=== PATIENT | female | born 1975 | race African-American/Black ===

== ENCOUNTER 2023-01-07 05:20 | Emergency (ER) | payer MEDICAID, OTHER ==
[~2023-01-07] VITALS: Ht 165.1 cm; Wt 65.0 kg
[2023-01-07 07:03] VITALS: BP 173/96
== END 2023-01-07 20:23 | disposition left against medical advice (07) ==
LOC: ER 05:20
DX: M79.644 Pain in right finger(s) (principal); Z53.21 Procedure and treatment not carried out due to patient leaving prior to being seen by health care provider
CPT/HCPCS: 73130; 99281; Z7610; 99283

== ENCOUNTER 2024-08-31 01:07 | Emergency (ER) | payer OTHER ==
[~2024-08-31] VITALS: Ht 167.6 cm; Wt 55.0 kg
[2024-08-31 01:09] VITALS: O2SAT 98
[2024-08-31] MEDS: SODIUM CHLORIDE 0.9% 1,000 ML IV ONE ×2 (01:45→02:18)
[2024-08-31] MEDS ORDERED: VANCOMYCIN 1G PREMIX 200 ML IV ONE (01:45)
[2024-08-31 02:07] LABS: BASOPHILS % 0.6 % (0.0-2.0); EOSINOPHILS % 10.6 % (0.0-5.0); HEMATOCRIT. 37.5 % (36.0-48.0); LYMPHOCYTES % 22.7 % (20.0-50.0); MEAN CORPUSCULAR HEMOGLOBIN 27.9 pg (28.0-32.0); MEAN CORPUSCULAR VOLUME 87.3 fL (81.0-99.0); MEAN PLATELET VOLUME 7.9 fl (7.4-10.4); MONOCYTES % 5.8 % (2.0-8.0); NEUTROPHILS % 60.3 % (40.0-76.0); PLATELET 279 x1000/uL (130-400); RED CELL DISTRIBUTION WIDTH 13.3 % (11.6-14.6); WHITE BLOOD COUNT 6.2 x1000/uL (4.5-11.0)
[2024-08-31] MEDS: PIPERACILLIN/TAZO 3.375G/50ML 50 ML IV ONE (02:18)
[2024-08-31] MEDS: PREDNISONE 20MG TABLET PO ONE (02:20)
[2024-08-31] MEDS: DIPHENHYDRAMINE 50MG/ML VIAL IV ONE (02:20)
[2024-08-31 02:32] LABS: CHLORIDE 111 mEq/L (98-107); POTASSIUM 3.8 mEq/L (3.5-5.1); SODIUM 140 mEq/L (136-145)
[2024-08-31 02:33] LABS: CARBON DIOXIDE 24 mEq/L (21-32)
[2024-08-31 02:35] LABS: CLARITY URINE CLOUDY (CLEAR); COLOR URINE YELLOW (YELLOW); GLUCOSE URINE NEGATIVE (NEGATIVE); KETONES URINE NEGATIVE (NEGATIVE); LEUKOCYTE ESTERASE URINE TRACE (NEGATIVE); NITRITE URINE POSITIVE (NEGATIVE); OCCULT BLOOD URINE NEGATIVE (NEGATIVE); PROTEIN URINE NEGATIVE (NEGATIVE); SPECIFIC GRAVITY URINE 1.028 (1.005-1.030)
[2024-08-31 02:38] LABS: CREATININE 0.8 mg/dL (0.6-1.0); GLUCOSE 86 mg/dL (70-105)
[2024-08-31 02:39] LABS: UREA NITROGEN BLOOD 9 mg/dL (9-23)
[2024-08-31 02:40] LABS: ALANINE AMINOTRANSFERASE 24 IU/L (10-49); ASPARTATE AMINOTRANSFERASE 21 IU/L (<34); BILIRUBIN TOTAL 0.5 mg/dL (0.1-1.0)
[2024-08-31] MEDS: VANCOMYCIN 500MG PREMIX 100 ML IV SCH (02:46)
[2024-08-31 04:18] LABS: SQUAMOUS EPITHELIAL CELL URINE RARE /lpf (RARE/1+)
[2024-08-31 04:19] LABS: BACTERIA URINE 2+
[2024-08-31 06:41] VITALS: BP 129/77; PULSE 78; RESP 15; TEMP 37.16964; O2SAT 100
== END 2024-08-31 07:07 | disposition short-term general hospital (02) ==
LOC: ER 01:07
DX: L03.90 Cellulitis, unspecified (principal); N39.0 Urinary tract infection, site not specified; F12.10 Cannabis abuse, uncomplicated
CPT/HCPCS: 80053; 81003; 85025; 87040; 87086; 36415; 71045; 96367; 96361; 96365; 96375; 99285; J7512; J1200; J2543; J3370; J7030; Z7610

== ENCOUNTER 2024-11-01 10:48 | Emergency (ER) | payer OTHER ==
[~2024-11-01] VITALS: Ht 157.5 cm; Wt 50.0 kg
[2024-11-01 10:51] VITALS: O2SAT 96
[2024-11-01 11:38] LABS: BASOPHILS % 0.1 % (0.0-2.0); EOSINOPHILS % 0.1 % (0.0-5.0); HEMATOCRIT. 34.7 % (36.0-48.0); HEMOGLOBIN. 11.1 g/dL (12.0-16.0); LYMPHOCYTES % 9.1 % (20.0-50.0); MEAN CORPUSCULAR HEMOGLOBIN 27.3 pg (28.0-32.0); MEAN CORPUSCULAR HGB CONC 31.9 g/dL (31.0-37.0); MEAN CORPUSCULAR VOLUME 85.7 fL (81.0-99.0); MEAN PLATELET VOLUME 8.8 fl (7.4-10.4); MONOCYTES % 11.3 % (2.0-8.0); NEUTROPHILS % 79.4 % (40.0-76.0); PLATELET 305 x1000/uL (130-400); RED BLOOD CELL COUNT 4.05 mill/uL (4.2-5.4); RED CELL DISTRIBUTION WIDTH 13.2 % (11.6-14.6); WHITE BLOOD COUNT 11.2 x1000/uL (4.5-11.0)
[2024-11-01 11:45] LABS: CHLORIDE 103 mEq/L (98-107); POTASSIUM 3.4 mEq/L (3.5-5.1); SODIUM 137 mEq/L (136-145)
[2024-11-01] MEDS ORDERED: CEFTRIAXONE 1GM/50ML 50 ML IV ONE (11:45)
[2024-11-01 11:46] LABS: CARBON DIOXIDE 26 mEq/L (21-32)
[2024-11-01 11:51] LABS: CREATININE 0.6 mg/dL (0.6-1.0); GLUCOSE 123 mg/dL (70-105)
[2024-11-01 11:52] LABS: UREA NITROGEN BLOOD 6 mg/dL (9-23)
[2024-11-01 11:53] LABS: ALANINE AMINOTRANSFERASE 80 IU/L (10-49); ALBUMIN 3.6 g/dL (3.2-4.8); ASPARTATE AMINOTRANSFERASE 77 IU/L (<34)
[2024-11-01 11:54] LABS: BILIRUBIN TOTAL 0.5 mg/dL (0.1-1.0); PROTEIN TOTAL 6.7 g/dL (6.0-8.3)
[2024-11-01 11:56] LABS: LACTIC ACID 2.4 mmol/L (0.4-2.0); TROPONIN I HIGH SENSITIVITY < 4 ng/L (3.0-34)
[2024-11-01 15:34] LABS: TROPONIN I HIGH SENSITIVITY < 4 ng/L (3.0-34)
[2024-11-01] MEDS: SODIUM CHLORIDE 0.9% (SEPSIS BOLUS) IV ONE (16:54)
[2024-11-01] MEDS: AZITHROMYCIN 500MG/250ML 250 ML IV ONE (16:54)
[2024-11-01] MEDS: CEFTRIAXONE 1GM/50ML 50 ML IV NR (16:54)
[2024-11-01 18:38] LABS: CLARITY URINE CLEAR (CLEAR); COLOR URINE YELLOW (YELLOW); GLUCOSE URINE NEGATIVE (NEGATIVE); KETONES URINE NEGATIVE (NEGATIVE); LEUKOCYTE ESTERASE URINE TRACE (NEGATIVE); NITRITE URINE POSITIVE (NEGATIVE); OCCULT BLOOD URINE 3+ (NEGATIVE); PROTEIN URINE NEGATIVE (NEGATIVE); SPECIFIC GRAVITY URINE 1.007 (1.005-1.030)
[2024-11-01 18:54] LABS: *AMPHETAMINES SCREEN URINE NEGATIVE (NEGATIVE); *BARBITURATES SCREEN URINE NEGATIVE (NEGATIVE); *BENZODIAZEPINES SCREEN URINE NEGATIVE (NEGATIVE); *COCAINE SCREEN URINE PRESUMPTIVE POSITIVE (NEGATIVE); CANNABINOID URINE SCREEN NEGATIVE (NEGATIVE); ECSTASY MDMA SCREEN URINE NEGATIVE (NEGATIVE); METHADONE URINE SCREEN NEGATIVE (NEGATIVE); OPIATES URINE SCREEN NEGATIVE (NEGATIVE); PHENCYCLIDINE URINE SCREEN NEGATIVE (NEGATIVE)
[2024-11-01 19:09] LABS: TRICHOMONAS URINE 1+
[2024-11-01 19:10] LABS: BACTERIA URINE 1+; SQUAMOUS EPITHELIAL CELL URINE 1+ /lpf (RARE/1+)
[2024-11-01] MEDS ORDERED: TOPUD MT (19:13)
[2024-11-01] MEDS ORDERED: IBUP-1521 MT (19:13)
[2024-11-01] MEDS ORDERED: NITR-87 MT (19:13)
[2024-11-01 20:09] VITALS: BP 100/60; PULSE 66; RESP 16; TEMP 36.66960; O2SAT 96
== END 2024-11-01 20:16 | disposition home or self-care (01) ==
LOC: ER 10:48 → EDBEDREQ 11:44 → ER 20:16
DX: N39.0 Urinary tract infection, site not specified (principal); F10.90 Alcohol use, unspecified, uncomplicated; F14.90 Cocaine use, unspecified, uncomplicated; Y90.9 Presence of alcohol in blood, level not specified; Z59.00 Homelessness unspecified; Z20.822 Contact with and (suspected) exposure to COVID-19
CPT/HCPCS: 99285; 96365; 71045; 87426; 80053; 80305; 81003; 83605; 85025; 87040; 87086; 84484; 87804 ×2; 36415; 84145; 93005; 96368; J0456; J0696; J7030

== ENCOUNTER 2024-11-02 00:01 | Emergency (ER) | payer OTHER ==
[~2024-11-02] VITALS: Ht 165.1 cm; Wt 49.0 kg
[~2024-11-02 00:01] MED LIST: IBUP-1521 MT; NITR-87 MT; TOPUD MT
[2024-11-02 00:19] VITALS: BP 96/65; TEMP 98.4; O2SAT 95
[2024-11-02 00:29] VITALS: PULSE 89; RESP 16; O2SAT 96
== END 2024-11-02 05:56 | disposition left against medical advice (07) ==
LOC: ER 00:01
DX: Z00.00 Encounter for general adult medical examination without abnormal findings (principal); Z53.21 Procedure and treatment not carried out due to patient leaving prior to being seen by health care provider

== ENCOUNTER 2025-04-11 04:36 | Emergency (ER) | payer OTHER ==
[~2025-04-11] VITALS: Ht 167.6 cm; Wt 68.0 kg
[2025-04-11 04:39] VITALS: O2SAT 100
[2025-04-11] MEDS ORDERED: AMOX1TAB16 MT (05:05)
[2025-04-11] MEDS: KETOROLAC 15MG/ML VIAL IM ONE (05:26)
[2025-04-11 05:31] VITALS: BP 133/85; PULSE 88; RESP 14; TEMP 36.3; O2SAT 100
== END 2025-04-11 05:32 | disposition home or self-care (01) ==
LOC: ER 04:36
DX: L03.011 Cellulitis of right finger (principal); Z79.899 Other long term (current) drug therapy; Z98.890 Other specified postprocedural states
CPT/HCPCS: 99283; 81025; 96372; J1885